=== PATIENT | male | born 1955 | race Two or more races ===

== ENCOUNTER 2021-03-29 09:00 | Outpatient (CLI) | payer OTHER ==
[~2021-03-29 09:00] MED LIST: AMBIEN10 MG PO; CEFADROXIL500 MG PO; ULTRACET PO; XARELTO10 MG PO
== END 2021-03-29 11:00 | disposition home or self-care (01) ==
LOC: ASH CLINIC 09:00
PROVIDERS: ATTEND Emergency Medicine
DX: Z23 Encounter for immunization (principal); U07.1 COVID-19

== ENCOUNTER 2022-05-20 17:37 | Emergency (ER) | payer OTHER ==
[~2022-05-20] VITALS: Ht 170.2 cm; Wt 77.1 kg
[2022-05-20] MEDS ORDERED: CRESTOR10 MG PO (18:00)
[2022-05-20] MEDS ORDERED: ENTRESTO 49 MG1 EACH PO (18:02)
[2022-05-20] MEDS ORDERED: CARVEDILOL ER40 MG PO (18:02)
[2022-05-20] MEDS ORDERED: BUPROPION HCL150 MG PO (18:02)
[2022-05-20] MEDS ORDERED: CIALIS5 MG PO (18:03)
[2022-05-20] MEDS ORDERED: IBU800 MG PO (19:32)
== END 2022-05-20 19:52 | disposition home or self-care (01) ==
LOC: ER 17:37
DX: S60.222A Contusion of left hand, initial encounter (principal); W18.30XA Fall on same level, unspecified, initial encounter; Y93.9 Activity, unspecified; Y92.019 Unspecified place in single-family (private) house as the place of occurrence of the external cause; Z85.46 Personal history of malignant neoplasm of prostate; E78.00 Pure hypercholesterolemia, unspecified; Z95.0 Presence of cardiac pacemaker; Z95.2 Presence of prosthetic heart valve

== ENCOUNTER 2023-08-16 19:08 | Emergency (ER) | payer OTHER ==
[~2023-08-16] VITALS: Ht 172.7 cm; Wt 77.1 kg
[~2023-08-16 19:08] MED LIST changes: +BUPROPION HCL150 MG PO; +CARVEDILOL ER40 MG PO; +CIALIS5 MG PO; +CRESTOR10 MG PO; +ENTRESTO 49 MG1 EACH PO; +IBU800 MG PO
[2023-08-17] MEDS ORDERED: DICLOFENAC POTA50 MG PO (08:16)
== END 2023-08-17 08:53 | disposition home or self-care (01) ==
LOC: ER 19:08
DX: S43.084A Other dislocation of right shoulder joint, initial encounter (principal); W18.39XA Other fall on same level, initial encounter; Y93.79 Activity, other specified sports and athletics; Y92.89 Other specified places as the place of occurrence of the external cause; Z95.2 Presence of prosthetic heart valve
CPT/HCPCS: 23650; 71045; 73000; 73030 ×2; 73060; 96365; 99284; J1100; J1885; J2270; J3490